=== PATIENT | female | born 1975 | race Caucasian/White ===

== ENCOUNTER → 2017-08-12 | Outpatient (CLI) | payer OTHER ==
[~2017-08-12] MED LIST: ATARAX25 MG PO; BENTYL10 MG PO; CELEXA20 MG PO; CIPROFLOXACIN500 MG PO; CLARITIN10 MG PO; DICLOFENAC POTA50 MG PO; FIORICET 325 MG1 TAB PO; FLEXERIL5 MG PO; Fioricet 325 MG1 TAB PO; HYDROCODONE BIT1 T11 PO; IMITREX100 MG PO; KEFLEX500 MG PO; LEVO T PO; MOTRIN800 MG PO; NORCO 10-325 T1 EACH PO; NORFLEX100 MG PO; PREDNISONE20 MG PO; PRILOSEC40 MG PO; PROVIGIL200 MG PO; REQUIP0.5 MG PO; REQUIP4 MG PO; SYNTHROID,LEV200 MCG PO; SYNTHROID,LEVO25 MCG PO; SYNTHROID0.125 MG PO; Synthroid,Levo50 MCG PO; VITAMIN C500 M4 PO; ZESTRIL,PRINIVIL5 MG PO; ZOFRAN ODT4 MG SL; ZOLOFT100 MG PO; ZOLOFT50 MG PO; [UNRECOGNIZED DRUG - OTHER] PO
[2017-08-12 18:40] LABS: BASO % 0.3 % (0.0-1.0); EOS # 0.6 10*3/uL (0.0-0.4); EOS % 7.8 % (1.0-4.0); HEMATOCRIT 40.2 % (37.0-47.0); HEMOGLOBIN 13.5 g/dl (12.0-16.0); LYMPH # 2.3 10*3/uL (1.3-4.4); LYMPH % 31.4 % (27.0-41.0); MEAN CELL VOLUME 89.1 fl (81.0-99.0); MEAN CORPUSCULAR HGB 29.9 pg (27.0-31.0); MEAN CORPUSCULAR HGB CONC 33.6 g/dl (33.0-37.0); MEAN PLATELET VOLUME 10.5 fl (9.6-12.3); MONO # 0.6 10*3/uL (0.1-1.0); MONO % 8.2 % (3.0-9.0); NEUT # 3.9 10*3/uL (2.3-7.9); PLATELET COUNT AUTOMATED 210 10*3/uL (130-400); RED BLOOD COUNT 4.51 10*6/uL (4.10-5.10); RED CELL DISTRI WIDTH 12.6 % (0-14.5); WHITE BLOOD COUNT 7.4 10*3/uL (4.8-10.8)
[2017-08-12 18:57] LABS: ALBUMIN 3.6 gm/dl (3.1-4.5); ALKALINE PHOSPHATASE 68 U/L (45-117); BUN 11 mg/dl (7-24); CHLORIDE 104 mmol/L (98-107); CHOLESTEROL 195 mg/dL (<200); CREATININE 0.78 mg/dL (0.55-1.02); HDL CHOLESTEROL 33 mg/dl (40-60); LDL CHOLESTEROL 115 mg/dL (9-159); POTASSIUM 3.7 mmol/L (3.5-5.1); SGOT/AST 15 IU/L (3-35); SGPT/ALT 28 U/L (12-78); SODIUM 138 mmol/L (136-145); TOTAL PROTEIN 7.1 gm/dL (6.4-8.2); TRIGLYCERIDES 233 mg/dl (<150); VLDL CHOLESTEROL 47 mg/dL (6-40)
[2017-08-12 19:20] LABS: FREE T4 1.78 ng/dl (0.76-1.46)
== END | disposition home or self-care (01) ==
LOC: LAB 18:16
PROVIDERS: Family Medicine
DX: E03.9 Hypothyroidism, unspecified (principal); I10 Essential (primary) hypertension; K52.9 Noninfective gastroenteritis and colitis, unspecified; E78.5 Hyperlipidemia, unspecified

== ENCOUNTER → 2017-08-20 | Outpatient (CLI) | payer OTHER | END | disposition home or self-care (01) | LOC: LAB 15:24 | DX: I10 Essential (primary) hypertension (principal); E03.9 Hypothyroidism, unspecified; E87.5 Hyperkalemia; K52.9 Noninfective gastroenteritis and colitis, unspecified ==

== ENCOUNTER → 2017-11-27 | Outpatient (CLI) | payer OTHER ==
[2017-11-27 15:06] LABS: URINE AMPHETAMINES < 1000 (1000ng/ml); URINE BARBITURATES < 200 (200ng/ml); URINE BENZODIAZEPINES < 200 (200ng/ml); URINE CANNABINOIDS (THC) < 50 (50ng/ml); URINE COCAINE < 300 (300ng/ml); URINE METHADONE < 300 (300ng/ml); URINE OPIATES < 300 (300ng/ml)
[2017-11-27 15:07] LABS: URINE PHENCYCLIDINE < 25 (25ng/ml)
== END | disposition home or self-care (01) ==
LOC: LAB 14:45
PROVIDERS: Family Medicine
DX: G47.419 Narcolepsy without cataplexy (principal)

== ENCOUNTER 2018-07-12 10:24 | Emergency (ER) | payer OTHER ==
[~2018-07-12] VITALS: Ht 167.6 cm; Wt 68.0 kg
[2018-07-12 10:28] VITALS: BP 120/73
[2018-07-12 11:02] LABS: BASO % 0.4 % (0.0-1.0); EOS # 0.4 10*3/uL (0.0-0.4); EOS % 4.7 % (1.0-4.0); HEMOGLOBIN 13.4 g/dl (12.0-16.0); LYMPH # 2.1 10*3/uL (1.3-4.4); LYMPH % 25.9 % (27.0-41.0); MEAN CELL VOLUME 91.1 fl (81.0-99.0); MEAN CORPUSCULAR HGB 30.5 pg (27.0-31.0); MEAN CORPUSCULAR HGB CONC 33.5 g/dl (33.0-37.0); MEAN PLATELET VOLUME 10.4 fl (9.6-12.3); MONO # 0.6 10*3/uL (0.1-1.0); MONO % 7.1 % (3.0-9.0); NEUT # 5.1 10*3/uL (2.3-7.9); NEUT % 61.5 % (47.0-73.0); PLATELET COUNT AUTOMATED 211 10*3/uL (130-400); RED BLOOD COUNT 4.39 10*6/uL (4.10-5.10); RED CELL DISTRI WIDTH 13.2 % (0-14.5); WHITE BLOOD COUNT 8.3 10*3/uL (4.8-10.8)
[2018-07-12 11:17] LABS: ALBUMIN 3.6 gm/dl (3.1-4.5); ALKALINE PHOSPHATASE 122 U/L (45-117); BUN 10 mg/dl (7-24); CHLORIDE 106 mmol/L (98-107); CREATININE 0.83 mg/dL (0.55-1.02); LIPASE 131 U/L (73-393); POTASSIUM 3.5 mmol/L (3.5-5.1); SGOT/AST 8 IU/L (3-35); SGPT/ALT 29 U/L (12-78); SODIUM 138 mmol/L (136-145); TOTAL PROTEIN 7.6 gm/dL (6.4-8.2)
[2018-07-12 11:22] LABS: BILIRUBIN NEGATIVE (NEGATIVE); BLOOD NEGATIVE (NEGATIVE); CLARITY CLEAR (CLEAR); COLOR YELLOW (YELLOW); GLUCOSE NEGATIVE (NEGATIVE); KETONE NEGATIVE (NEGATIVE); LEUKO ESTERASE NEGATIVE (NEGATIVE); NITRITE NEGATIVE (NEGATIVE); PH 7.5 (5.0-9.0); SPECIFIC GRAVITY <= 1.005 (1.005-1.030); UROBILINOGEN 0.2 E.U./dl (0.2-1.0)
[2018-07-12 11:44] LABS: WBC 0-2 wbc/hpf (0-5)
[2018-07-12] MEDS ORDERED: PEPCID20 MG PO (12:50)
[2018-08-03] MEDS ORDERED: OMEPRAZOLE D/R20 MG PO (15:15)
[2018-08-03] MEDS ORDERED: AMPHETAMINE/DEX20 MG PO (15:16)
[2018-08-03] MEDS ORDERED: MODAFINIL200 M1 PO (15:16)
== END 2018-07-12 13:11 | disposition home or self-care (01) ==
LOC: ED 10:24
PROVIDERS: Emergency Medicine
DX: R10.13 Epigastric pain (principal); Z90.49 Acquired absence of other specified parts of digestive tract; G43.909 Migraine, unspecified, not intractable, without status migrainosus; Z79.899 Other long term (current) drug therapy; Z98.890 Other specified postprocedural states; Z98.51 Tubal ligation status

== ENCOUNTER → 2018-08-06 | Day surgery (SDC) | payer OTHER ==
[~2018-08-06] VITALS: Ht 165.1 cm; Wt 72.6 kg
[~2018-08-06] MED LIST changes: +AMPHETAMINE/DEX20 MG PO; +MODAFINIL200 M1 PO; +OMEPRAZOLE D/R20 MG PO; +PEPCID20 MG PO
--- NOTE | ~2018-08-06 | O ---
[place], [place] OPERATIVE NOTE NAME: MATT SAM UNIT #: [id number] ROOM: DOCTOR: FLOR BALLESTEROS MD BIRTHDATE: [birth year] DOS: 08/06/2018 HISTORY OF PRESENT ILLNESS: A 42-year-old patient who presented with chief complaint of epigastric pain on Nexium and Carafate. ALLERGIES: STEROIDS, suspected to be. FAMILY HISTORY: Noncontributory. PAST SURGICAL HISTORY: , gallbladder thyroid. PAST MEDICAL HISTORY: Hypothyroidism, hypertension, depression, narcolepsy, diabetes. SOCIAL HISTORY: Smoker. FAMILY HISTORY: Rare alcohol consumer. PROCEDURE: Today's procedure part of investigation is panendoscopy plus biopsy. PREMEDICATION: Propofol. SCOPE: Olympus forward-viewing gastroscope Q10 video. REPORT: After putting the patient in left lateral position and application of lubricant to the scope, the scope was introduced. Thereafter, under direct visualization, I advanced through the length of esophagus without difficulty. Gastric pouch was entered. Evidence of gastritis was noticed. Antral biopsy obtained. Duodenal bulb, second and third part within normal limits. The patient was gradually extubated along the lesser curvature, no acute pathology identified. The patient extubated, tolerated procedure well. IMPRESSION: Gastritis, most likely secondary to consumption of 6 pack of Coke per day as well as being an avid nicotine consumption and smoker and dietary mismanagement. PLAN: The patient is advised to stop consumption of carbonated sodas of all kinds, stop smoking. Continue with Nexium, keeping the head of the bed elevated 6 inch all time and also we are going to ask her to come use Gaviscon Extra Strength 1 tablet at bedtime to reduce some of the dyspepsia that she is experiencing. Should her abdominal pain ambiguous continue then we will consider further investigation with a CT scan of the abdomen and female middle age. I assure there is no other contribution from any systems. [place], [place] OPERATIVE NOTE NAME: MATT SAM Max UNIT #: [id number] ROOM: DOCTOR: FLOR BALLESTEROS MD BIRTHDATE: [birth year] FLOR BALLESTEROS MD CM:OPRECORD:OPERATIVE NOTE [id number] FLOR BALLESTEROS MD 08/06/18 1735 interface
[2018-08-06 13:15] VITALS: BP 96/54
[2018-08-06 14:12] VITALS: BP 116/56
[2018-08-06 14:28] VITALS: BP 95/67
[2018-08-06 14:39] VITALS: BP 92/48
== END | disposition home or self-care (01) ==
LOC: SDC 08-03 14:00
DX: K29.50 Unspecified chronic gastritis without bleeding (principal); I10 Essential (primary) hypertension; E11.9 Type 2 diabetes mellitus without complications; E03.9 Hypothyroidism, unspecified; F32.9 Major depressive disorder, single episode, unspecified; K21.9 Gastro-esophageal reflux disease without esophagitis; F17.210 Nicotine dependence, cigarettes, uncomplicated; Z90.49 Acquired absence of other specified parts of digestive tract; Z98.890 Other specified postprocedural states; Z88.8 Allergy status to other drugs, medicaments and biological substances; Z79.899 Other long term (current) drug therapy; Z98.51 Tubal ligation status; Z83.6 Family history of other diseases of the respiratory system

== ENCOUNTER → 2018-08-27 | Outpatient (CLI) | payer OTHER ==
[2018-08-31 00:05] LABS: CODFISH, IGE <0.10 kU/L (Class 0); CORN, IGE <0.10 kU/L (Class 0); EGG WHITE, IGE <0.10 kU/L (Class 0); MILK (COW), IGE <0.10 kU/L (Class 0); PEANUT, IGE <0.10 kU/L (Class 0); SOYBEAN, IGE <0.10 kU/L (Class 0); WHEAT, IGE <0.10 kU/L (Class 0)
[2018-08-31 10:05] LABS: ALTERNARIA ALTERNATA, IGE <0.10 kU/L (Class 0); AMERICAN ELM, IGE <0.10 kU/L (Class 0); ASPERGILLUS FUMIGATU, IGE <0.10 kU/L (Class 0); BERMUDA GRASS, IGE <0.10 kU/L (Class 0); BIRCH, COMMON SILVER IGE <0.10 kU/L (Class 0); CLADOSPORIUM HERBARU, IGE <0.10 kU/L (Class 0); D FARINAE MITE <0.10 kU/L (Class 0); D PTERONYSSINUS <0.10 kU/L (Class 0); DOG DANDER, IGE <0.10 kU/L (Class 0); IMMUNOGLOBULIN IgE 002170 187 IU/mL (0-100); MAPLE LEAF SYCAMORE, IGE <0.10 kU/L (Class 0); MAPLE/BOX ELDER, IGE <0.10 kU/L (Class 0); MOUSE URINE IGE <0.10 kU/L (Class 0); PENICILLIUM CHRYSOGENUM, IGE <0.10 kU/L (Class 0); ROUGH PIGWEED, IGE <0.10 kU/L (Class 0); SHEEP SORREL (DOCK), IGE <0.10 kU/L (Class 0); SHORT RAGWEED, IGE <0.10 kU/L (Class 0); TIMOTHY, IGE <0.10 kU/L (Class 0); WALNUT TREE, IGE <0.10 kU/L (Class 0); WHITE ASH, IGE <0.10 kU/L (Class 0); WHITE MULBERRY, IGE <0.10 kU/L (Class 0); WHITE OAK, IGE <0.10 kU/L (Class 0)
== END | disposition home or self-care (01) ==
LOC: LAB 10:37
PROVIDERS: Student in an Organized Health Care Education/Training Program
DX: J30.2 Other seasonal allergic rhinitis (principal)

== ENCOUNTER → 2018-09-27 | Outpatient (CLI) | payer OTHER | END | disposition home or self-care (01) | LOC: RAD 12:53 | DX: R05 Cough (principal); I10 Essential (primary) hypertension; F17.210 Nicotine dependence, cigarettes, uncomplicated ==

== ENCOUNTER → 2018-10-13 | Outpatient (CLI) | payer OTHER ==
[~2018-10-13] MED LIST changes: +ANAPROX DS550 MG PO; +COZAAR25 M1 PO; -LEVO T PO; +LEVO-T200 MCG PO; +ZANTAC 7575 M1 PO
== END ==
LOC: MAMMO 09-30 11:30
DX: N63.20 Unspecified lump in the left breast, unspecified quadrant (principal)

== ENCOUNTER 2019-03-10 12:03 | Inpatient (IN) | payer OTHER ==
[2019-03-10] VITALS (8 sets, daily range): BP systolic 99–145; BP diastolic 63–82
[~2019-03-10] VITALS: Ht 167.6 cm; Wt 80.4 kg
--- NOTE | ~2019-03-10 | EKG ---
[place], [place] ELECTROCARDIOGRAM REPORT NAME: MATT SAM UNIT #: [id number] ROOM: 515 DOCTOR: HOWARD DRAFT REPORT BIRTHDATE: [birth year] [facility] Test Date: 2019-03-10 Test Time: 14:57:48 Pat Name: MATT SAM Department: Room: [facility] Gender: F Appliance Service Representative: Lu Velasquez : 1975 Requested By: RABIA SALVADOR Order Number: [id number] Reading MD: Betzaida Daly MD Measurements Intervals [place] Rate: 68 P: 38 KS: 137 QRS: 38 QRSD: 87 T: 38 QT: 400 QTc: 426 Interpretive Statements Sinus rhythm No previous ECG available for comparison Electronically Signed On 03-11-2019 9:46:16 PDT by Betzaida Daly MD CM:EKGRPT:ELECTROCARDIOGRAM REPORT [id number] RABIA LAWRENCE DRAFT REPORT RABIA SALVADOR M.D.
--- NOTE | ~2019-03-10 | EKG ---
[place], [place] ELECTROCARDIOGRAM REPORT NAME: MATT SAM UNIT #: [id number] ROOM: 515 DOCTOR: HOWARD DRAFT REPORT BIRTHDATE: [birth year] [facility] Test Date: 2019-03-10 Test Time: 12:03:07 Pat Name: MATT SAM Department: Room: [facility] Gender: F Release Of Information Clerk: Zenaida Smith : 1975 Requested By: RABIA SALVADOR Order Number: [id number] Reading MD: Betzaida Daly MD Measurements Intervals [place] Rate: 84 P: 55 OR: 127 QRS: 52 QRSD: 91 T: 49 QT: 365 QTc: 432 Interpretive Statements Sinus rhythm No previous ECG available for comparison Electronically Signed On 03-11-2019 9:46:10 PDT by Betzaida Daly MD CM:EKGRPT:ELECTROCARDIOGRAM REPORT [id number] RABIA LAWRENCE DRAFT REPORT RABIA SALVADOR M.D.
--- NOTE | ~2019-03-10 | EKG ---
[place], [place] ELECTROCARDIOGRAM REPORT NAME: MATT SAM UNIT #: [id number] ROOM: 515 DOCTOR: HOWARD DRAFT REPORT BIRTHDATE: [birth year] [facility] Test Date: 2019-03-10 Test Time: 17:52:59 Pat Name: MATT SAM Department: Room: [facility] Gender: F Engineer Intern: Lu Velasquez : 1975 Requested By: RABIA SALVADOR Order Number: [id number] Reading MD: Betzaida Daly MD Measurements Intervals [place] Rate: 73 P: 39 FL: 130 QRS: 49 QRSD: 90 T: 47 QT: 386 QTc: 426 Interpretive Statements Sinus rhythm No previous ECG available for comparison Electronically Signed On 03-11-2019 9:46:31 PDT by Betzaida Daly MD CM:EKGRPT:ELECTROCARDIOGRAM REPORT [id number] RABIA LAWRENCE DRAFT REPORT RABIA SALVADOR M.D.
[~2019-03-10 12:03] MED LIST changes: -COZAAR25 M1 PO; -ZANTAC 7575 M1 PO
[2019-03-10 12:32] LABS: BASO % 0.3 % (0.0-1.0); EOS # 0.3 10*3/uL (0.0-0.4); HEMATOCRIT 38.4 % (37.0-47.0); HEMOGLOBIN 12.5 g/dl (12.0-16.0); LYMPH # 1.9 10*3/uL (1.3-4.4); LYMPH % 29.9 % (27.0-41.0); MEAN CELL VOLUME 89.3 fl (81.0-99.0); MEAN CORPUSCULAR HGB 29.1 pg (27.0-31.0); MEAN CORPUSCULAR HGB CONC 32.6 g/dl (33.0-37.0); MEAN PLATELET VOLUME 10.2 fl (9.6-12.3); MONO # 0.6 10*3/uL (0.1-1.0); NEUT # 3.5 10*3/uL (2.3-7.9); NEUT % 56.5 % (47.0-73.0); PLATELET COUNT AUTOMATED 205 10*3/uL (130-400); RED CELL DISTRI WIDTH 12.9 % (0-14.5); WHITE BLOOD COUNT 6.3 10*3/uL (4.8-10.8)
[2019-03-10 12:42] LABS: ACT PARTIAL THROMBO TIME 24.2 SECONDS (20.0-32.1)
--- NOTE | 2019-03-10 12:50 | NUR ---
PT FEELS THAT NTG HAS HELPED CHEST PAIN AT THIS TIME. EARNEST DE LOS SANTOS
[2019-03-10 12:51] LABS: ALBUMIN 3.3 gm/dl (3.1-4.5); ALKALINE PHOSPHATASE 81 U/L (45-117); BUN 15 mg/dl (7-24); CHLORIDE 107 mmol/L (98-107); CREATININE 0.88 mg/dL (0.55-1.02); POTASSIUM 4.2 mmol/L (3.5-5.1); SGOT/AST 16 IU/L (3-35); SGPT/ALT 32 U/L (12-78); SODIUM 141 mmol/L (136-145); TOTAL PROTEIN 6.7 gm/dL (6.4-8.2)
[2019-03-10 12:54] LABS: TROPONIN I < 0.015 ng/ml (<0.045)
--- NOTE | 2019-03-10 13:34 | NUR ---
A 43, admitted to , under the services of MERRY Matthews DO with a diagnosis of CHEST PAIN. Chief complaint is CHEST PAIN. Patient arrived via bed from ER. Monitor applied. Initial assessment completed. Vital signs taken and recorded. MERRY MATTHEWS DO notified of admission to the unit. Orders received. See assessment for past medical history, medications and allergies. Patient and/or family oriented to unit. [facility] visitation policy reviewed. Clothing/patient valuable form completed. DON MURRY
[2019-03-10] MEDS ORDERED: PROVIGIL200 MG PO (14:13)
[2019-03-10] MEDS ORDERED: ZANTAC 7575 M1 PO (14:14)
[2019-03-10] MEDS ORDERED: COZAAR25 M1 PO (14:16)
--- NOTE | 2019-03-10 19:30 | NUR ---
PATIENT RECEIVED TYLENOL FOR HEADACHE. RATED 5/10.
--- NOTE | 2019-03-10 22:19 | NUR ---
CALLED DR STONE TO MAKE HIM AWARE THAT PATIENT REFUSED PROVIGIL AT THIS TIME DUE TO NOT WANTING TO BE UP ALL NIGHT WITH NARCOLEPSY MEDICATION. STATES SHE NORMALLY TAKES IT ONCE IN THE MORNING.
[2019-03-11] VITALS: BP 125/84
--- NOTE | 2019-03-11 00:36 | NUR ---
PATIENT RESTING COMFORTABLY IN HER BED AT THIS TIME. TYLENOL EFFECTIVE FOR HEADACHE. DENIES ANY OTHER DISCOMFORTS. CALL LIGHT WITHIN REACH.
[2019-03-11 06:44] LABS: BASO % 0.5 % (0.0-1.0); EOS # 0.3 10*3/uL (0.0-0.4); EOS % 4.8 % (1.0-4.0); HEMATOCRIT 40.5 % (37.0-47.0); LYMPH # 2.1 10*3/uL (1.3-4.4); LYMPH % 33.8 % (27.0-41.0); MEAN CELL VOLUME 90.6 fl (81.0-99.0); MEAN CORPUSCULAR HGB 29.1 pg (27.0-31.0); MEAN CORPUSCULAR HGB CONC 32.1 g/dl (33.0-37.0); MEAN PLATELET VOLUME 10.2 fl (9.6-12.3); MONO # 0.6 10*3/uL (0.1-1.0); MONO % 9.9 % (3.0-9.0); NEUT # 3.2 10*3/uL (2.3-7.9); NEUT % 50.7 % (47.0-73.0); PLATELET COUNT AUTOMATED 198 10*3/uL (130-400); RED BLOOD COUNT 4.47 10*6/uL (4.10-5.10); RED CELL DISTRI WIDTH 12.9 % (0-14.5); WHITE BLOOD COUNT 6.3 10*3/uL (4.8-10.8)
[2019-03-11 07:16] LABS: BUN 13 mg/dl (7-24); CHLORIDE 107 mmol/L (98-107); CHOLESTEROL 198 mg/dL (<200); CREATININE 0.71 mg/dL (0.55-1.02); HDL CHOLESTEROL 45 mg/dl (40-60); LDL CHOLESTEROL 120 mg/dL (9-159); POTASSIUM 4.3 mmol/L (3.5-5.1); SODIUM 140 mmol/L (136-145); TRIGLYCERIDES 165 mg/dl (<150); VLDL CHOLESTEROL 33 mg/dL (6-40)
[2019-03-11 07:29] LABS: THYROID STIM HORMONE (HS) < 0.005 uIU/ml (0.358-4.75)
[2019-03-11 07:57] VITALS: BP 162/70
--- NOTE | 2019-03-11 08:00 | NUR ---
PT SITTING UP IN BED, ALERT ORIENTED AND PLEASANT WITHOUT ANY COMPLAINTS. PT DENIES CHEST PAIN AT THIS TIME. RESPIRATIONS EASY AND UNLABORED ON ROOM AIR. CALL LIGHT IN REACH.
--- NOTE | 2019-03-11 09:00 | NUR ---
Senior Cobol Developer in to talk to patient. Patient states lives at home with family. There are few steps in the home. Physician: nicolasa galeana [facility]acy: [facility] Home health services: none Patient's level of ADLs: INDEPENDENT Patient has working utilities: all working DME: none Follow-up physician's appointment after d/c: will be made by hospitalist nurse director upon discharge Does patient want to access PORTAL?: no Discharge plan discussed with patient, patient lives at home , is independent in adls and ambualtion, patient states she will be going home when able and denies any home needs. NIA TESFAYE
--- NOTE | 2019-03-11 10:26 | NUR ---
Discharge instructions reviewed with patient/family. Patient receptive and verbalizes understanding. Follow-up care arranged. Written instructions given to patient/family. DON MURRY
== END 2019-03-11 10:26 | disposition home or self-care (01) | DRG 880 ==
LOC: ED 12:03 → EDHOLD 13:04 → 5E 13:25
PROVIDERS: Emergency Medicine; ADMIT Internal Medicine
DX: F41.9 Anxiety disorder, unspecified (principal); E44.0 Moderate protein-calorie malnutrition; F32.9 Major depressive disorder, single episode, unspecified; K21.9 Gastro-esophageal reflux disease without esophagitis; G47.429 Narcolepsy in conditions classified elsewhere without cataplexy; R06.82 Tachypnea, not elsewhere classified; E03.9 Hypothyroidism, unspecified; R73.9 Hyperglycemia, unspecified; F90.9 Attention-deficit hyperactivity disorder, unspecified type; I10 Essential (primary) hypertension; Z88.8 Allergy status to other drugs, medicaments and biological substances; Z98.891 History of uterine scar from previous surgery; Z90.49 Acquired absence of other specified parts of digestive tract; Z83.6 Family history of other diseases of the respiratory system; Z80.9 Family history of malignant neoplasm, unspecified; Z79.899 Other long term (current) drug therapy; Z68.28 Body mass index [BMI] 28.0-28.9, adult

== ENCOUNTER → 2019-04-05 | Outpatient (CLI) | payer OTHER ==
[~2019-04-05] MED LIST changes: +COZAAR25 M1 PO; +ZANTAC 7575 M1 PO
[2019-04-06 08:09] LABS: ALPHA-1-ANTITRYPSIN, SERUM 132 mg/dL (90-200)
== END | disposition home or self-care (01) ==
LOC: LAB 14:56
PROVIDERS: Internal Medicine Critical Care Medicine
DX: J44.9 Chronic obstructive pulmonary disease, unspecified (principal)

== ENCOUNTER → 2019-04-28 | Outpatient (CLI) | payer OTHER | END | disposition home or self-care (01) | LOC: MRI 11:00 | DX: S50.01XA Contusion of right elbow, initial encounter (principal); S53.401A Unspecified sprain of right elbow, initial encounter; M79.89 Other specified soft tissue disorders; M25.421 Effusion, right elbow; X58.XXXA Exposure to other specified factors, initial encounter; Y93.89 Activity, other specified; Y92.89 Other specified places as the place of occurrence of the external cause; Y99.8 Other external cause status ==

== ENCOUNTER → 2019-06-28 | Outpatient (CLI) | payer OTHER ==
[~2019-06-28] MED LIST changes: +CEFADROXIL500 M1 PO
== END | disposition home or self-care (01) ==
LOC: RAD 18:01
DX: M25.561 Pain in right knee (principal); M25.562 Pain in left knee; M79.89 Other specified soft tissue disorders

== ENCOUNTER 2019-08-13 14:30 | Emergency (ER) | payer OTHER ==
[~2019-08-13] VITALS: Wt 74.8 kg
[~2019-08-13 14:30] MED LIST changes: -CEFADROXIL500 M1 PO
[2019-08-13 14:32] VITALS: BP 111/75
[2019-08-13] MEDS ORDERED: CEFADROXIL500 M1 PO (15:24)
[2019-08-13] MEDS ORDERED: ANAPROX DS550 MG PO (15:24)
== END 2019-08-13 16:14 | disposition home or self-care (01) ==
LOC: ED 14:30
DX: L08.9 Local infection of the skin and subcutaneous tissue, unspecified (principal); Z87.891 Personal history of nicotine dependence; Z79.899 Other long term (current) drug therapy

== ENCOUNTER 2020-11-26 16:35 | Observation (INO) | payer OTHER ==
[~2020-11-26] VITALS: Ht 165.1 cm; Wt 81.0 kg
[2020-11-26 16:35] VITALS: BP 132/85
[~2020-11-26 16:35] MED LIST changes: +CEFADROXIL500 M1 PO
[2020-11-26 16:54] LABS: BASO % 0.4 % (0.0-1.0); EOS # 0.4 10*3/uL (0.0-0.4); EOS % 5.5 % (1.0-4.0); HEMATOCRIT 39.3 % (37.0-47.0); LYMPH % 26.9 % (27.0-41.0); MEAN CELL VOLUME 86.9 fl (81.0-99.0); MEAN CORPUSCULAR HGB 28.8 pg (27.0-31.0); MEAN CORPUSCULAR HGB CONC 33.1 g/dl (33.0-37.0); MEAN PLATELET VOLUME 9.7 fl (9.6-12.3); MONO # 0.6 10*3/uL (0.1-1.0); MONO % 7.5 % (3.0-9.0); NEUT # 4.4 10*3/uL (2.3-7.9); NEUT % 59.4 % (47.0-73.0); PLATELET COUNT AUTOMATED 230 10*3/uL (130-400); RED BLOOD COUNT 4.52 10*6/uL (4.10-5.10); RED CELL DISTRI WIDTH 13.3 % (0-14.5); WHITE BLOOD COUNT 7.4 10*3/uL (4.8-10.8)
[2020-11-26 17:05] LABS: ACT PARTIAL THROMBO TIME 24.2 SECONDS (20.0-32.1)
[2020-11-26 17:11] LABS: ALBUMIN 3.3 gm/dl (3.1-4.5); ALKALINE PHOSPHATASE 95 U/L (45-117); BUN 13 mg/dl (7-24); CHLORIDE 112 mmol/L (98-107); CREATININE 0.94 mg/dL (0.55-1.02); POTASSIUM 3.8 mmol/L (3.5-5.1); SGOT/AST 12 IU/L (3-35); SGPT/ALT 34 U/L (12-78); SODIUM 141 mmol/L (136-145); TOTAL PROTEIN 6.9 gm/dL (6.4-8.2)
[2020-11-26 17:17] LABS: TROPONIN I < 0.016 ng/ml (<0.045)
[2020-11-26 18:41] VITALS: BP 125/86
[2020-11-26 22:53] VITALS: BP 122/84
[2020-11-26 23:08] VITALS: BP 128/83
[2020-11-26] MEDS ORDERED: PROVIGIL200 MG PO (23:26)
[2020-11-26] MEDS ORDERED: PRILOSEC20 M1 PO (23:29)
[2020-11-26] MEDS ORDERED: WAKIX17.8 MG PO (23:29)
[2020-11-26 23:35] VITALS: BP 128/83
[2020-11-27] MEDS ORDERED: EFFEXOR XR37.5 M1 PO (00:27)
[2020-11-27] MEDS ORDERED: ZANAFLEX4 MG PO (00:27)
[2020-11-27 06:29] LABS: BASO % 0.5 % (0.0-1.0); EOS # 0.5 10*3/uL (0.0-0.4); EOS % 6.2 % (1.0-4.0); HEMATOCRIT 39.6 % (37.0-47.0); LYMPH # 3.4 10*3/uL (1.3-4.4); LYMPH % 41.3 % (27.0-41.0); MEAN CELL VOLUME 89.8 fl (81.0-99.0); MEAN CORPUSCULAR HGB CONC 32.3 g/dl (33.0-37.0); MEAN PLATELET VOLUME 10.2 fl (9.6-12.3); MONO # 0.8 10*3/uL (0.1-1.0); MONO % 9.2 % (3.0-9.0); NEUT # 3.5 10*3/uL (2.3-7.9); NEUT % 42.6 % (47.0-73.0); PLATELET COUNT AUTOMATED 240 10*3/uL (130-400); RED BLOOD COUNT 4.41 10*6/uL (4.10-5.10); RED CELL DISTRI WIDTH 13.3 % (0-14.5); WHITE BLOOD COUNT 8.3 10*3/uL (4.8-10.8)
[2020-11-27 06:36] LABS: BUN 14 mg/dl (7-24); CHLORIDE 108 mmol/L (98-107); CREATININE 0.67 mg/dL (0.55-1.02); POTASSIUM 4.7 mmol/L (3.5-5.1); SODIUM 139 mmol/L (136-145)
[2020-11-27 08:00] VITALS: BP 117/76
[2020-11-27 12:00] VITALS: BP 115/72
[2020-11-27 16:00] VITALS: BP 111/78
[2020-11-27 20:00] VITALS: BP 122/79
[2020-11-28] VITALS: BP 102/77
[2020-11-28 08:00] VITALS: BP 118/81
[2020-11-28 12:00] VITALS: BP 120/76
[2020-11-28 16:00] VITALS: BP 117/78
== END 2020-11-28 17:09 | disposition home or self-care (01) ==
LOC: ED 16:35 → EDHOLD 17:42 → 5E 22:55
PROVIDERS: Family Medicine; Internal Medicine; ADMIT Internal Medicine; ATTEND Internal Medicine
DX: R07.2 Precordial pain (principal); I10 Essential (primary) hypertension; F17.210 Nicotine dependence, cigarettes, uncomplicated; E87.8 Other disorders of electrolyte and fluid balance, not elsewhere classified; R00.0 Tachycardia, unspecified; E03.9 Hypothyroidism, unspecified; G47.419 Narcolepsy without cataplexy; F90.9 Attention-deficit hyperactivity disorder, unspecified type; F41.9 Anxiety disorder, unspecified; F32.9 Major depressive disorder, single episode, unspecified; K21.9 Gastro-esophageal reflux disease without esophagitis; Z90.49 Acquired absence of other specified parts of digestive tract; Z95.5 Presence of coronary angioplasty implant and graft; Z98.890 Other specified postprocedural states

== ENCOUNTER → 2020-11-28 | Outpatient (CLI) | payer OTHER ==
[~2020-11-28] MED LIST changes: +EFFEXOR XR37.5 M1 PO; +PRILOSEC20 M1 PO; +WAKIX17.8 MG PO; +ZANAFLEX4 MG PO
== END | disposition home or self-care (01) ==
LOC: LAB 17:28
PROVIDERS: ATTEND Internal Medicine Critical Care Medicine
DX: R53.83 Other fatigue (principal)

== ENCOUNTER 2021-05-19 22:50 | Emergency (ER) | payer OTHER ==
[~2021-05-19] VITALS: Ht 165.1 cm; Wt 78.0 kg
[2021-05-20] VITALS: BP 129/84
== END 2021-05-20 00:02 | disposition home or self-care (01) ==
LOC: ED 22:50
DX: T59.811A Toxic effect of smoke, accidental (unintentional), initial encounter (principal); F41.9 Anxiety disorder, unspecified; F17.200 Nicotine dependence, unspecified, uncomplicated; Z88.8 Allergy status to other drugs, medicaments and biological substances; Z79.899 Other long term (current) drug therapy; Z98.890 Other specified postprocedural states; Z90.49 Acquired absence of other specified parts of digestive tract; Z98.51 Tubal ligation status; X00.1XXA Exposure to smoke in uncontrolled fire in building or structure, initial encounter; Y93.89 Activity, other specified; Y92.61 Building [any] under construction as the place of occurrence of the external cause; Y99.8 Other external cause status

== ENCOUNTER 2021-11-19 23:47 | Emergency (ER) | payer OTHER ==
[~2021-11-19] VITALS: Ht 167.6 cm; Wt 86.2 kg
[2021-11-20 00:19] LABS: BASO % 0.5 % (0.0-1.0); EOS # 0.1 10*3/uL (0.0-0.4); EOS % 1.9 % (1.0-4.0); HEMATOCRIT 37.4 % (37.0-47.0); LYMPH # 2.2 10*3/uL (1.3-4.4); LYMPH % 37.4 % (27.0-41.0); MEAN CORPUSCULAR HGB 31.6 pg (27.0-31.0); MEAN CORPUSCULAR HGB CONC 34.8 g/dl (33.0-37.0); MEAN PLATELET VOLUME 9.6 fl (9.6-12.3); MONO # 0.4 10*3/uL (0.1-1.0); NEUT # 3.1 10*3/uL (2.3-7.9); PLATELET COUNT AUTOMATED 197 10*3/uL (130-400); RED BLOOD COUNT 4.11 10*6/uL (4.10-5.10); RED CELL DISTRI WIDTH 13.2 % (0-14.5); WHITE BLOOD COUNT 5.9 10*3/uL (4.8-10.8)
[2021-11-20 00:29] LABS: ACT PARTIAL THROMBO TIME 26.7 SECONDS (20.0-32.1); INTERNATIONAL NORM RATIO 1.1 (2.0-3.5)
[2021-11-20 00:36] LABS: ALBUMIN 3.7 gm/dl (3.1-4.5); ALKALINE PHOSPHATASE 59 U/L (45-117); BUN 18 mg/dl (7-24); CHLORIDE 106 mmol/L (98-107); CREATININE 0.96 mg/dL (0.55-1.02); POTASSIUM 3.3 mmol/L (3.5-5.1); SGOT/AST 15 IU/L (3-35); SGPT/ALT 34 U/L (12-78); SODIUM 137 mmol/L (136-145); TOTAL PROTEIN 7.2 gm/dL (6.4-8.2)
[2021-11-20 04:45] VITALS: BP 107/71
== END 2021-11-20 06:38 | disposition home or self-care (01) ==
LOC: ED 23:47
PROVIDERS: Emergency Medicine
DX: R07.9 Chest pain, unspecified (principal); R94.6 Abnormal results of thyroid function studies; I10 Essential (primary) hypertension; K21.9 Gastro-esophageal reflux disease without esophagitis; E03.9 Hypothyroidism, unspecified; Z98.890 Other specified postprocedural states; Z98.51 Tubal ligation status; Z79.899 Other long term (current) drug therapy

== ENCOUNTER → 2021-12-09 | Outpatient (CLI) | payer OTHER | END | disposition home or self-care (01) | LOC: CARD 09:30 | PROVIDERS: ATTEND Registered Nurse | DX: R00.2 Palpitations (principal) ==

== ENCOUNTER 2022-09-04 08:58 | Emergency (ER) | payer OTHER | END 2022-09-04 09:23 | disposition left against medical advice (07) | LOC: ED 08:58 | DX: Z53.21 Procedure and treatment not carried out due to patient leaving prior to being seen by health care provider (principal) ==

== ENCOUNTER 2022-11-04 02:24 | Emergency (ER) | payer OTHER ==
[~2022-11-04] VITALS: Ht 167.6 cm; Wt 65.8 kg
[2022-11-04 02:26] VITALS: BP 121/96
[2022-11-04 02:53] LABS: BASO % 0.2 % (0.0-1.0); EOS # 0.2 10*3/uL (0.0-0.4); EOS % 1.8 % (1.0-4.0); HEMATOCRIT 39.8 % (37.0-47.0); LYMPH # 1.6 10*3/uL (1.3-4.4); LYMPH % 18.8 % (27.0-41.0); MEAN CELL VOLUME 89.2 fl (81.0-99.0); MEAN CORPUSCULAR HGB 30.7 pg (27.0-31.0); MEAN CORPUSCULAR HGB CONC 34.4 g/dl (33.0-37.0); MEAN PLATELET VOLUME 9.8 fl (9.6-12.3); MONO # 0.5 10*3/uL (0.1-1.0); MONO % 6.2 % (3.0-9.0); NEUT # 6.4 10*3/uL (2.3-7.9); NEUT % 72.7 % (47.0-73.0); PLATELET COUNT AUTOMATED 195 10*3/uL (130-400); RED BLOOD COUNT 4.46 10*6/uL (4.10-5.10); RED CELL DISTRI WIDTH 13.1 % (0-14.5); WHITE BLOOD COUNT 8.7 10*3/uL (4.8-10.8)
== END 2022-11-04 03:49 | disposition home or self-care (01) ==
LOC: ED 02:24
PROVIDERS: Internal Medicine
DX: T59.811A Toxic effect of smoke, accidental (unintentional), initial encounter (principal); Z98.890 Other specified postprocedural states; Z90.49 Acquired absence of other specified parts of digestive tract; Z90.89 Acquired absence of other organs; Z98.51 Tubal ligation status; F17.200 Nicotine dependence, unspecified, uncomplicated; F10.90 Alcohol use, unspecified, uncomplicated; Y92.009 Unspecified place in unspecified non-institutional (private) residence as the place of occurrence of the external cause

== ENCOUNTER → 2023-05-26 | Outpatient (CLI) | payer OTHER | END | disposition home or self-care (01) | LOC: RAD 10:13 | PROVIDERS: ATTEND Family Medicine | DX: M47.812 Spondylosis without myelopathy or radiculopathy, cervical region (principal); M48.02 Spinal stenosis, cervical region; M25.78 Osteophyte, vertebrae ==

== ENCOUNTER → 2023-12-03 | Outpatient (CLI) | payer OTHER | END | disposition home or self-care (01) | LOC: MAMMO 11-16 01:30 | PROVIDERS: ATTEND Family Medicine | DX: Z12.31 Encounter for screening mammogram for malignant neoplasm of breast (principal) ==

== ENCOUNTER → 2025-02-21 | Outpatient (CLI) | payer OTHER ==
[~2025-02-21] MED LIST changes: +IOHEXOL 300 MG/ML 100 ML VIAL IV ONE; +IOHEXOL 300 MG/ML 100 ML VIAL ONE
== END | disposition home or self-care (01) ==
LOC: CT 02-14 15:00
PROVIDERS: ATTEND Nurse Practitioner Family
DX: R10.9 Unspecified abdominal pain (principal)

== ENCOUNTER 2025-04-05 20:03 | Emergency (ER) | payer OTHER ==
[~2025-04-05] VITALS: Ht 165.1 cm; Wt 81.6 kg
[~2025-04-05 20:03] MED LIST changes: -IOHEXOL 300 MG/ML 100 ML VIAL IV ONE; -IOHEXOL 300 MG/ML 100 ML VIAL ONE
[2025-04-05] MEDS ORDERED: FAMOTIDINE 50 ML IV ONE (20:30)
[2025-04-05] MEDS ORDERED: Racepinephrine Hydrochloride 0.5 ML AMP NEB ONE (20:30)
[2025-04-05] MEDS ORDERED: diphenhydrAMINE hydrochloride 50 MG/ML VIAL IV ONE ×2 (20:30→21:55)
[2025-04-05] MEDS ORDERED: Ondansetron Hydrochloride 4 MG/2 ML VIAL IV ONE (20:30)
[2025-04-05 20:42] LABS: BASO % 0.2 % (0.0-1.0); EOS # 0.1 10*3/uL (0.0-0.4); EOS % 2.1 % (1.0-4.0); HEMATOCRIT 37.9 % (37.0-47.0); MEAN CELL VOLUME 90.5 fl (81.0-99.0); MEAN CORPUSCULAR HGB CONC 34.3 g/dl (33.0-37.0); MEAN PLATELET VOLUME 9.7 fl (9.6-12.3); MONO # 0.4 10*3/uL (0.1-1.0); MONO % 6.8 % (3.0-9.0); NEUT % 66.6 % (47.0-73.0); PLATELET COUNT AUTOMATED 194 10*3/uL (130-400); RED BLOOD COUNT 4.19 10*6/uL (4.10-5.10); RED CELL DISTRI WIDTH 13.1 % (0-14.5); WHITE BLOOD COUNT 6.1 10*3/uL (4.8-10.8)
[2025-04-05 21:01] LABS: BUN 16 mg/dl (9-23); CHLORIDE 105 mmol/L (98-107); POTASSIUM 3.5 mmol/L (3.4-5.1)
[2025-04-05 21:30] VITALS: BP 128/72
[2025-04-05] MEDS ORDERED: Codeine Phosphate/Guaifenesi 10 ML UDC PO ONE (21:55)
[2025-04-05] MEDS ORDERED: Ketorolac Tromethamine 30 MG/ML VIAL IV ONE (21:55)
[2025-04-05] MEDS ORDERED: ALBUTEROL 8 GM INHALER INH ONE (21:55)
[2025-04-05] MEDS ORDERED: GUAIFENESIN AC473 M1 PO (21:56)
== END 2025-04-05 22:24 | disposition home or self-care (01) ==
LOC: ED 20:03
PROVIDERS: Emergency Medicine
DX: Z77.098 Contact with and (suspected) exposure to other hazardous, chiefly nonmedicinal, chemicals (principal); R06.89 Other abnormalities of breathing; R07.0 Pain in throat; Z79.899 Other long term (current) drug therapy; Z98.890 Other specified postprocedural states; Z90.49 Acquired absence of other specified parts of digestive tract; Z87.891 Personal history of nicotine dependence

== ENCOUNTER → 2025-05-23 | Outpatient (CLI) | payer OTHER ==
[~2025-05-23] MED LIST changes: +GUAIFENESIN AC473 M1 PO
== END | disposition home or self-care (01) ==
LOC: RAD 14:42
PROVIDERS: ATTEND Family Medicine
DX: M47.816 Spondylosis without myelopathy or radiculopathy, lumbar region (principal); M48.061 Spinal stenosis, lumbar region without neurogenic claudication; M25.78 Osteophyte, vertebrae; M54.50 Low back pain, unspecified